=== PATIENT | male | born 1950 | race Caucasian/White ===

== ENCOUNTER → 2017-12-13 | Outpatient (CLI) | payer OTHER ==
[~2017-12-13] MED LIST: ASPI-621 PO; CARI350T PO; ENAL1TAB4 PO; GLUC1CAP48 PO; KRIL1CAP9 PO; LISI-167 PO; METF10002 PO; METF500T4 PO; METH750T87 PO; NIAC500T PO; OXYC1TAB7 PO; OXYC1TAB9 PO; POTA99TA8 PO; SIMV40TA PO; SIMV40TA3 PO; TAMS-11 PO; UBID100C41 PO; VERA240T86 PO; VITA400C14 PO
[2017-12-13 08:34] LABS: BASOPHILS # (AUTO) 0.06 x10^3/uL (0-0.1); BASOPHILS % (AUTO) 1 % (0-1); EOSINOPHILS # (AUTO) 0.28 x10^3/uL (0-0.4); EOSINOPHILS % (AUTO) 4 % (1-7); LYMPHOCYTES # (AUTO) 2.47 x10^3/uL (1-3.4); LYMPHOCYTES % (AUTO) 32 % (22-44); MD NO; MEAN CORPUSCULAR HEMOGLOBIN 31.1 pg (27.5-34.5); MEAN CORPUSCULAR HGB CONC 34.3 g/dL (33.2-36.2); MEAN CORPUSCULAR VOLUME 90.8 fL (81-97); MEAN PLATELET VOLUME 8.3 fL (7.4-10.4); MONOCYTES # (AUTO) 0.56 x10^3/uL (0.2-0.8); MONOCYTES % (AUTO) 7 % (2-9); NEUTROPHILS # (AUTO) 4.38 x10^3/uL (1.8-6.8); NEUTROPHILS % (AUTO) 57 % (42-75); PLATELET COUNT 238 x10^3/uL (130-400); RED BLOOD COUNT 4.95 x10^6/uL (4.38-5.82); RED CELL DISTRIBUTION WIDTH 13.2 % (9.4-14.8)
[2017-12-13 08:39] LABS: INTERNATIONAL NORMALIZED RATIO 1.06 (0.93-1.1)
[2017-12-13 08:41] LABS: ALANINE AMINOTRANSFERASE 23 U/L (12-78); ALBUMIN 4.1 g/dL (3.4-5.0); ANION GAP 7 mmol/L (5-15); CALCIUM 9.3 mg/dL (8.5-10.1); CHLORIDE 104 mmol/L (98-107); CREATININE 0.79 mg/dL (0.7-1.3)
[2017-12-13 08:43] LABS: ALKALINE PHOSPHATASE 81 U/L (45-117); BILIRUBIN,TOTAL 0.7 mg/dL (0.2-1.0); TOTAL PROTEIN 7.1 g/dL (6.4-8.2)
[2017-12-13 09:00] LABS: MICROSCOPIC NOT IND
[2017-12-13 09:03] LABS: CULTURE INDICATED? NO
[2017-12-13 09:09] LABS: HEMOGLOBIN A1C 7.4 % (4.2-6.3)
== END ==
LOC: STAR 07:52
PROVIDERS: ATTEND Neurological Surgery
DX: Z01.818 Encounter for other preprocedural examination (principal)
CPT/HCPCS: 36415; 71046; 80053; 81003; 83036; 85025; 85610; 85730; 93005

== ENCOUNTER 2017-12-26 06:22 | Inpatient (IN) | payer OTHER ==
[~2017-12-26] VITALS: Ht 175.3 cm; Wt 74.7 kg
[~2017-12-26 06:22] MED LIST changes: -METF10002 PO; +METF10003 PO; -METF500T4 PO; +METF500T5 PO; +OXYC-432 PO; -OXYC1TAB9 PO
[2017-12-26] MEDS ORDERED: BACITRACIN 50,000 UNIT ONE (07:01)
[2017-12-26] MEDS ORDERED: EPINEPHRINE 1 MG/ML, 1ML ONE (07:01)
[2017-12-26] MEDS ORDERED: THROMBIN 5,000 UNIT VIAL TP ONE (07:01)
[2017-12-26] MEDS ORDERED: BUPIVACAINE/PF 0.25% ONE (07:01)
[2017-12-26] MEDS: LACTATED RINGERS 1,000 ML IV SCH ×3 (07:11→15:56)
[2017-12-26] MEDS ORDERED: OxyconTIN ER 10 MG TAB.ER PO ONE (08:30)
[2017-12-26] MEDS ORDERED: FAMOTIDINE 20 MG TABLET PO ONE (08:30)
[2017-12-26] MEDS ORDERED: ACETAMINOPHEN 500 MG TABLET PO ONE (08:30)
[2017-12-26] MEDS ORDERED: GABAPENTIN 300 MG CAPSULE PO ONE (08:30)
[2017-12-26] MEDS ORDERED: BUPIVACAINE/PF 0.25% INFIL ONE (08:33)
[2017-12-26] MEDS ORDERED: MIDAZOLAM 1 MG/ML, 2ML ONE (08:40)
[2017-12-26] MEDS ORDERED: FENTANYL PF 250 MCG/5ML ONE (08:40)
[2017-12-26] MEDS ORDERED: OXYcodone 5 MG/5 ML ORAL.SOL UDC PO PRN (09:00)
[2017-12-26] MEDS ORDERED: MORPHINE SULFATE 4 MG/ML, 1ML IVPush PRN (09:00)
[2017-12-26] MEDS ORDERED: PROMETHAZINE 25 MG/ML, 1ML IV PRN (09:00)
[2017-12-26] MEDS ORDERED: ONDANSETRON ODT 8 MG PO PRN (09:00)
[2017-12-26] MEDS ORDERED: FENTANYL PF 100 MCG/2ML IV PRN (09:00)
[2017-12-26] MEDS ORDERED: LABETALOL 5MG/ML, 20ML IV PRN (09:00)
[2017-12-26] MEDS ORDERED: hydrALAzine 20 MG/ML, 1ML IV PRN (09:00)
[2017-12-26] MEDS ORDERED: OXYcodone/APAP 10/325MG TABLET PO PRN (15:30)
[2017-12-26] MEDS ORDERED: HYDROmorphone PCA 30 MG/30 ML IV PRN (15:30)
[2017-12-26] MEDS ORDERED: TIZANIDINE 4MG TABLET PO PRN (15:30)
[2017-12-26] MEDS ORDERED: DIPHENHYDRAMINE 50 MG/ML, 1ML IV PRN (15:30)
[2017-12-26] MEDS ORDERED: DIPHENHYDRAMINE 25 MG CAPSULE PO PRN (15:30)
[2017-12-26] MEDS ORDERED: morphine SULFATE 10 MG/ML, 1ML IV PRN (15:30)
[2017-12-26] MEDS ORDERED: BISACODYL 10 MG SUPP PR PRN (15:30)
[2017-12-26] MEDS ORDERED: MAGNESIUM HYDROXIDE 8%, 30ML UDC PO PRN (15:30)
[2017-12-26] MEDS ORDERED: ONDANSETRON 2MG/ML, 2ML IV PRN (15:30)
[2017-12-26] MEDS ORDERED: SUCCINYLCHOLINE 20 MG/ML, 10ML ONE (15:38)
[2017-12-26] MEDS ORDERED: VASOPRESSIN 20 UNIT/ML, 1ML ONE (15:38)
[2017-12-26] MEDS ORDERED: CEFAZOLIN 1,000 MG ONE (15:38)
[2017-12-26] MEDS ORDERED: PROPOFOL 10 MG/ML, 20ML ONE (15:38)
[2017-12-26] MEDS ORDERED: ROCURONIUM 10 MG/ML,10ML ONE (15:38)
[2017-12-26] MEDS ORDERED: PHENYLEPHRINE 10 MG/ML ONE (15:38)
[2017-12-26] MEDS: NS + 20MEQ KCL 1,000 ML IV SCH (18:03)
[2017-12-26] MEDS: CEFAZOLIN PMX 1GM/50ML 50 ML IVPB SCH (18:03)
[2017-12-26] MEDS: metFORMIN 500 MG TABLET PO SCH (18:12)
[2017-12-26 20:00] VITALS: BP 144/88
[2017-12-26] MEDS ORDERED: SIMVASTATIN 40 MG TABLET PO SCH (21:00)
[2017-12-27 01:03] VITALS: BP 122/74
[2017-12-27] MEDS: CEFAZOLIN PMX 1GM/50ML 50 ML IVPB SCH (01:05)
[2017-12-27 04:20] VITALS: BP 129/77
[2017-12-27 07:02] VITALS: BP 144/82
[2017-12-27] MEDS: metFORMIN 500 MG TABLET PO SCH (07:30)
[2017-12-27] MEDS: NS + 20MEQ KCL 1,000 ML IV SCH (07:55)
[2017-12-27] MEDS ORDERED: SENNA/DOCUSATE TABLET PO SCH (09:00)
[2017-12-27] MEDS ORDERED: VERAPAMIL ER 240MG TABLET.ER PO SCH (09:00)
[2017-12-27] MEDS ORDERED: LISINOPRIL 10 MG TABLET PO SCH (09:00)
[2017-12-27] MEDS ORDERED: HYDR-3240 PO (09:28)
[2017-12-27] MEDS ORDERED: TIZA2TAB PO (09:28)
[2017-12-27] MEDS ORDERED: VERAPAMIL ER 120MG TABLET.ER ONE (09:51)
[2017-12-27] MEDS: HYDROcodone/APAP 5/325 TABLET PO PRN ×2 (09:53→14:37)
[2017-12-27 14:34] VITALS: BP 127/77
== END 2017-12-27 15:18 | disposition home or self-care (01) | DRG 520 ==
LOC: OUT 06:22 → 4NOR 14:34 → OUT 23:05 → 4NOR 23:05 → DCLOUNGE 12-27 15:03
PROVIDERS: ADMIT Neurological Surgery; ATTEND Neurological Surgery
PROC: 01NB0ZZ Release Lumbar Nerve, Open Approach (ICD-10-PCS; 2017-12-26)
PROC: 0SB20ZZ Excision of Lumbar Vertebral Disc, Open Approach (ICD-10-PCS; principal; 2017-12-26 09:00)
DX: M48.061 Spinal stenosis, lumbar region without neurogenic claudication (principal); M43.16 Spondylolisthesis, lumbar region; M54.16 Radiculopathy, lumbar region; I10 Essential (primary) hypertension; M51.36 Other intervertebral disc degeneration, lumbar region; E11.9 Type 2 diabetes mellitus without complications
CPT/HCPCS: 72100; 82962; J0171; J0690; J2250; J2270; J2704; J3010; J3480; J3490; J0330; J2370; J7120